=== PATIENT | female | born 1960 | race Caucasian/White ===

== ENCOUNTER 2021-04-02 07:07 | Day surgery (SDC) | payer OTHER ==
--- NOTE | 2021-04-01 14:54 | PCM.PREANE ---
Preanesthetic Assessment - Procedure Proposed Procedure: Right ring finger A1 génesis release - Anesthesia/Transfusion/Family Hx Anesthesia History: Prior Anesthesia Without Reaction Family History of Anesthesia Reaction: No Transfusion History: No Prior Transfusion(s) Intubation History: Unknown - Review of Systems General: No Symptoms Pulmonary: Cough (chronic cough from coughing) Cardiovascular: No Symptoms Gastrointestinal: No Symptoms Neurological: No Symptoms Other: Reports: None - Physical Assessment NPO Status Date: 04/01/21 NPO Status Time: 23:45 Vital Signs: BP 166/80 HR 67 97.7 20 96% Height: 1.55 m Weight: 63.503 kg ASA Class: 3 Mental Status: Alert & Oriented x3 Airway Class: Mallampati = 2 Dentition: Reports: Bridge Thyro-Mental Finger Breadths: 2 Mouth Opening Finger Breadths: 2 ROM/Head Extension: Full Lungs: Normal Respiratory Effort, Wheezing (In bases) - Lab Values: Labs reviewed and okay to proceed - Imaging/EKG Impressions: EKG 08/26/20: NSR Chest x-ray 08/26/20: No acute findings WDL - Allergies Allergies/Adverse Reactions: Allergies Allergy/AdvReac Type Severity Reaction Status Date / Time codeine Allergy Cannot Verified 04/01/21 14:19 Remember - Blood Blood Available: No Product(s) Available: None - Anesthesia Plan Pre-Op Medication Ordered: None - Acknowledgements Anesthesia Type Planned: MAC Pt an Appropriate Candidate for the Planned Anesthesia: Yes Alternatives and Risks of Anesthesia Discussed w Pt/Guardian: Yes Pt/Guardian Understands and Agrees with Anesthesia Plan: Yes PreAnesthesia Questionnaire HEENT History: Reports: Impaired Vision Other HEENT History: Wears glasses Cardiovascular History: Reports: High Cholesterol, PVD Other Cardiovascular History: Iliac artery stent bilaterally (2018), bilateral carotid artery disease (patient evaluated a few weeks ago and no need for surgery at this time) Other Respiratory History: Smoker Gastrointestinal History: Reports: GERD Other OB/BYN History: Tubal ligation Musculoskeletal History: Reports: Osteoarthritis Neurological History: Reports: Migraines Psychiatric History: Reports: Depression Oncologic (Cancer) History: Reports: Bladder Other Oncologic History: Bladder cancer history currently in remission, skin cancer - Past Surgical History GI Surgical History: Reports: Cholecystectomy Other GI Surgeries/Procedures: Transurethral resection of bladder tumor. Tubal ligation. Stents to right and left iliac arteries. Urethral dilatation with cystogram. Musculoskeletal Surgical History: Reports: Carpal Tunnel Other Musculoskeletal Surgeries/Procedures:: Right foot surgery - SUBSTANCE USE Tobacco Use Status *Q: Current Every Day Tobacco User Tobacco Use Within Last Twelve Months: No Second Hand Smoke Exposure: Yes Days Per Week of Alcohol Use: 0 Number of Drinks Per Day: 0 Total Drinks Per Week: 0 Recreational Drug Use History: No - CURRENT (IN HOUSE) MEDS Current Meds: Current Medications Lactated Ringer's (Ringers, Lactated) 1,000 mls @ 125 mls/hr IV ASDIRECTED VISHNU Stop: 04/02/21 23:00 Lidocaine/Sodium Bicarbonate (Lidocaine 1%/Sod Bicarbonate In Ns 8.4% 1 Ml Syringe) 0.25 ml IDERM ONETIME PRN PRN Reason: Prior to IV Start Stop: 04/02/21 18:00 Sodium Chloride (Sodium Chloride 0.9% 10 Ml Syringe) 10 ml FLUSH ASDIRECTED PRN PRN Reason: Keep Vein Open Stop: 04/02/21 18:00
[~2021-04-02 07:07] MED LIST: Albuterol 0.083% 2.5 MG/3 ML Neb Soln NEB SCH; Lactated Ringers 1,000 ML IV SCH; Lidocaine 1%/Sod Bicarbonate in NS 8.4% 1 ML Syringe IDERM PRN; Midazolam 1 MG/ML 2 ML SDV ONE; Propofol 200 MG/20 ML SDV ONE; Sodium Chloride 0.9% 10 ML Syringe FLUSH PRN; fentaNYL 100 MCG/2 ML SDV ONE
[2021-04-02] MEDS ORDERED: Bupivacaine 0.25% 10 ML SDV ONE (07:36)
[2021-04-02] MEDS ORDERED: ceFAZolin 1 GM Vial ONE (07:42)
[2021-04-02] MEDS ORDERED: Lactated Ringers 1,000 ML ONE (08:37)
--- NOTE | 2021-04-02 09:03 | PCM48HPAN ---
Post Anesthesia Note - EVALUATION WITHIN 48HRS OF ANESTHETIC Vital Signs in Normal Range: Yes Patient Participated in Evaluation: Yes Respiratory Function Stable: Yes Airway Patent: Yes Cardiovascular Function Stable: Yes Hydration Status Stable: Yes Pain Control Satisfactory: Yes Nausea and Vomiting Control Satisfactory: Yes Mental Status Recovered: Yes Vital Signs: Last Vital Signs Temp Pulse Resp BP Pulse Ox 96 04/02/21 07:42 Vitals at 0855: BP 142/74 97 Sat HR 67 RR 18 97.1
--- NOTE | 2021-04-03 06:55 | OR ---
DATE OF OPERATION: 04/02/2021 SURGEON: Avelino Mcnulty MD PREOPERATIVE DIAGNOSIS: Right ring finger stenosing tenosynovitis. POSTOPERATIVE DIAGNOSIS: Right ring finger stenosing tenosynovitis. OPERATION PERFORMED: Right ring finger A1 génesis release. ANESTHESIA: Local anesthesia with monitored anesthesia care. JOCKEY VALET: Odilia Schneider. INDICATION: The patient is a pleasant 60-year-old female with symptomatic stenosing tenosynovitis of right ring finger. After discussing risks, benefits, alternatives of both conservatives as well as surgical treatment, the patient verbalized understanding and wished to proceed with surgery. DESCRIPTION OF PROCEDURE: The patient was brought to the operating room. Right upper extremity was prepped and draped in standard orthopedic fashion. Surgical pause was performed identifying the appropriate patient and appropriate extremity to be operated upon. Preoperative antibiotics were given. We infiltrated her ring finger flexor tendon sheath with several milliliters of 1% lidocaine. Right upper extremity was exsanguinated, and a pneumatic tourniquet was inflated to 250 mmHg. We made a longitudinal incision at the distal palmar crease proximal to the ring finger, sharp dissection was carried down to the skin and subcutaneous tissue. Hemostasis was obtained. We divided the palmar fascial fibers, dissected down to flexor tendon sheath. Utilizing Allen blade, we opened the flexor tendon sheath. She had modest synovitis present. We released flexor tendon sheath proximally as well as the overlying palmar fascial fibers. We then released the A1 génesis down to the A2 génesis. With active flexion, she had no mechanical symptoms. The wound was irrigated. Skin was closed with 5-0 nylon. The patient was brought to the recovery in satisfactory condition. ESTIMATED BLOOD LOSS: MMODAL /[id number]
== END 2021-04-02 09:34 | disposition home or self-care (01) ==
LOC: JD.SDS 07:07
PROVIDERS: ATTEND Orthopaedic Surgery
DX: M65.841 Other synovitis and tenosynovitis, right hand (principal); M65.341 Trigger finger, right ring finger; I73.9 Peripheral vascular disease, unspecified; E78.00 Pure hypercholesterolemia, unspecified; F17.210 Nicotine dependence, cigarettes, uncomplicated; Z91.041 Radiographic dye allergy status; Z88.5 Allergy status to narcotic agent; Z90.49 Acquired absence of other specified parts of digestive tract; Z98.890 Other specified postprocedural states; Z79.899 Other long term (current) drug therapy
CPT/HCPCS: 26055; 94640; J0690; J2250; J2704; J3010; J3490; J7120

== ENCOUNTER 2022-12-02 11:15 | Day surgery (SDC) | payer OTHER ==
[~2022-12-02 11:15] MED LIST changes: -Albuterol 0.083% 2.5 MG/3 ML Neb Soln NEB SCH; +Lidocaine 1% 20 ML MDV ONE; -Midazolam 1 MG/ML 2 ML SDV ONE; -Propofol 200 MG/20 ML SDV ONE; +Sodium Chloride 0.9% 10 ML Syringe FLUSH SCH; -fentaNYL 100 MCG/2 ML SDV ONE
[2022-12-02] MEDS ORDERED: Betamethasone Acetate/Betamethasone Sod Phosphate 6 MG/1 ML MDV ONE (12:21)
[2022-12-02] MEDS ORDERED: Bupivacaine 0.25% 10 ML SDV ONE (12:21)
[2022-12-02] MEDS ORDERED: Lidocaine 1% 30 ML SDV ONE (12:21)
[2022-12-02] MEDS ORDERED: Lidocaine 1% 4 ML ONE (12:40)
[2022-12-02] MEDS ORDERED: fentaNYL 100 MCG/2 ML SDV ONE (12:40)
[2022-12-02] MEDS ORDERED: Propofol 200 MG/20 ML SDV ONE ×2 (12:40→13:47)
[2022-12-02] MEDS ORDERED: ceFAZolin 2 GM Vial ONE (13:17)
== END 2022-12-02 14:45 | disposition home or self-care (01) ==
LOC: JD.SDS 11:15
PROVIDERS: ATTEND Orthopaedic Surgery
DX: M65.841 Other synovitis and tenosynovitis, right hand (principal); M71.342 Other bursal cyst, left hand; M65.842 Other synovitis and tenosynovitis, left hand; E78.2 Mixed hyperlipidemia; I77.9 Disorder of arteries and arterioles, unspecified; I73.9 Peripheral vascular disease, unspecified; E78.00 Pure hypercholesterolemia, unspecified; G43.909 Migraine, unspecified, not intractable, without status migrainosus; F32.A Depression, unspecified; K21.9 Gastro-esophageal reflux disease without esophagitis; F17.210 Nicotine dependence, cigarettes, uncomplicated; Z79.899 Other long term (current) drug therapy; Z88.5 Allergy status to narcotic agent; Z91.048 Other nonmedicinal substance allergy status
CPT/HCPCS: 26055; 26160; 87641; J0690; J2704; J3010; J7120; 01810; J0702; J3490

== ENCOUNTER 2023-06-09 07:20 | Day surgery (SDC) | payer OTHER ==
[~2023-06-09 07:20] MED LIST changes: -Lactated Ringers 1,000 ML IV SCH; -Lidocaine 1% 20 ML MDV ONE; +Lidocaine 1% 30 ML SDV ONE; -Lidocaine 1%/Sod Bicarbonate in NS 8.4% 1 ML Syringe IDERM PRN; +Midazolam 1 MG/ML 2 ML SDV ONE; +Propofol 200 MG/20 ML SDV ONE; -Sodium Chloride 0.9% 10 ML Syringe FLUSH PRN; -Sodium Chloride 0.9% 10 ML Syringe FLUSH SCH; +Sodium Chloride 0.9% 50 ML SDV ONE; +fentaNYL 100 MCG/2 ML SDV ONE
[2023-06-09] MEDS ORDERED: ceFAZolin 2 GM Vial ONE (07:50)
[2023-06-09] MEDS ORDERED: Sodium Bicarbonate 8.4% 50 MEQ/50 ML SDV ONE (07:51)
[2023-06-09] MEDS ORDERED: Bupivacaine 0.25% 10 ML SDV ONE (08:23)
[2023-06-09] MEDS ORDERED: Lactated Ringers 1,000 ML IV SCH (08:30)
[2023-06-09] MEDS ORDERED: Sodium Chloride 0.9% 10 ML Syringe FLUSH PRN (08:30)
[2023-06-09] MEDS ORDERED: Propofol 200 MG/20 ML SDV ONE (08:31)
[2023-06-09] MEDS ORDERED: Lidocaine 1% 50 ML MDV ONE (08:41)
[2023-06-09] MEDS ORDERED: Sodium Chloride 0.9% 10 ML Syringe FLUSH SCH (09:00)
[2023-06-09] MEDS: Betamethasone Acetate/Betamethasone Sod Phosphate 6 MG/1 ML MDV ONE ×2 (09:00→09:05)
[2023-06-09] MEDS: Bupivacaine 0.25% 10 ML SDV ONE ×2 (09:00→09:05)
== END 2023-06-09 10:30 | disposition home or self-care (01) ==
LOC: JD.SDS 07:20
PROVIDERS: ATTEND Orthopaedic Surgery
DX: G56.01 Carpal tunnel syndrome, right upper limb (principal); M67.441 Ganglion, right hand; F17.210 Nicotine dependence, cigarettes, uncomplicated; J43.9 Emphysema, unspecified; F32.A Depression, unspecified; N18.9 Chronic kidney disease, unspecified; F41.9 Anxiety disorder, unspecified; E78.00 Pure hypercholesterolemia, unspecified; Z98.890 Other specified postprocedural states; Z88.5 Allergy status to narcotic agent; Z91.041 Radiographic dye allergy status; Z79.899 Other long term (current) drug therapy; Z95.5 Presence of coronary angioplasty implant and graft
CPT/HCPCS: 20526; 26055; 26160; J0690; J0702; J2001; J2250; J2704; J3010; J3490; J7120; 01810